=== PATIENT | female | born 1985 | race Caucasian/White ===

== ENCOUNTER 2022-07-08 18:28 | Emergency (ER) | payer OTHER, SELFPAY ==
[2022-07-08 18:29] VITALS: BP 131/86; PULSE 66; RESP 16; TEMP 36.7; O2SAT 99; BMI 40.3
--- NOTE | 2022-07-08 18:51 | CT_ITS ---
PROCEDURE INFORMATION: Exam: CT Head Without Contrast Exam date and time: 07/08/2022 7:18 PM Age: 37 years old Clinical indication: Injury or trauma; Other: Lac on head; Laceration TECHNIQUE: Imaging protocol: Computed tomography of the head without contrast. Radiation optimization: All CT scans at this facility use at least one of these dose optimization techniques: automated exposure control; mA and/or kV adjustment per patient size (includes targeted exams where dose is matched to clinical indication); or iterative reconstruction. COMPARISON: No relevant prior studies available. FINDINGS: Brain: No acute infarct or hemorrhage. No mass or midline shift. Normal moreira-white differentiation. Cerebral ventricles: No ventriculomegaly. Paranasal sinuses: Chronic right maxillary sinus disease. Mastoid air cells: Visualized mastoid air cells are well aerated. Bones/joints: Unremarkable. No acute fracture. Soft tissues: Thin laceration and scalp soft tissue swelling in the high left parietal region. IMPRESSION: 1. No acute intracranial abnormality. 2. High left parietal region scalp laceration and soft tissue swelling.
--- NOTE | 2022-07-08 18:51 | HMH.EDGENADL ---
Discharge Plan Disposition Chief Complaint: Wound/Laceration Referrals Follow up/Referrals: Provider,MD Evans [Primary Care Provider] - See instructions Instructions Patient Instructions: DI for Laceration Repair Discharge ED Provider: Jovani Conti General Adult HPI General Chief complaint: Wound/Laceration Stated complaint: AO07/08@1700 lac to head Time Seen by Provider: 07/08/22 18:48 History of Present Illness HPI narrative: Patient presents with a scalp injury sustained when she inadvertently struck her self in the head with a post whole digger. She denies additional injury she does note mild to moderate headache and describes symptoms as moderate and without exacerbating alleviating factors. Related Data Allergies Allergy/AdvReac Type Severity Reaction Status Date / Time No Known Allergies Allergy Verified 07/08/22 18:57 PFSH PFSH Social History Smoking Status: Never smoker ROS Obtained: Yes All systems reviewed & no additional complaints except as documented Physical Exam General General appearance: alert and in no apparent distress Head Head exam: other (There is a stellate, superficial appearing laceration to the left parietal aspect of the scalp.) Eye Eye exam: Present normal appearance, PERRL and EOMI ENT ENT exam: Present normal exam, normal oropharynx, mucous membranes moist, TM's normal bilaterally and normal external ear exam Neck Neck exam: Present normal inspection, full ROM, trachea midline and other (Nontender); Absent meningismus or lymphadenopathy Chest Chest inspection: Present normal inspection and symmetric chest wall rise; Absent tenderness Respiratory Respiratory exam: Present normal lung sounds bilaterally; Absent respiratory distress Cardiovascular Cardiovascular exam: Present regular rate and normal rhythm; Absent JVD Abdominal Exam Abdominal exam: Present soft and normal bowel sounds; Absent distention, tenderness or guarding Extremities Exam Extremities exam: Present normal inspection, full ROM and normal capillary refill; Absent calf tenderness Back Exam Back exam: Present normal inspection; Absent tenderness Neurological Exam Neurological exam: Present alert and oriented X3 Psychiatric Psychiatric exam: Present normal affect and normal mood Skin Skin exam: Present warm, dry, intact and normal color Lymphatic Lymphatic Findings: no adenopathy Medical Decision Making Medical Records Medical records reviewed: Yes I reviewed the patient's medical records. Kvng Inquiry Pt receiving controlled substance: No Vital Signs: 07/08/22 18:29 Temperature 98.1 F Temperature Source Oral Pulse Rate [Right Radial] 66 Respiratory Rate 16 Blood Pressure [Right Arm] 131/86 Blood Pressure Mean [Right Arm] 101 Blood Pressure Source [Right Arm] Automatic Cuff Blood Pressure Position [Right Arm] Sitting 02 Sat by Pulse Oximetry 99 Oxygen Delivery Method Room Air Lab Data Lab Results 07/08/22 18:53: Urine HCG, Qual Negative Orders (Tests/Meds): ED MEDICATIONS Generic Name Dose Route Start Last Admin Trade Name Freq PRN Reason Stop Dose Admin Lidocaine HCl 10 ml 07/08/22 19:36 Lidocaine 1% 10ml Mdv IJ 07/08/22 19:37 ONCE ONE ORDERS Category Date Time Status CT head/brain wo con Stat Cat Scan 07/08/22 18:51 Completed Urine , HCG Qual. Stat Lab 07/08/22 18:53 Completed Procedures Laceration Laceration 1: Site: scalp Size (cm): 4 Description: linear Depth: simple, single layer Local Anesthetic: lidocaine 1% Amount of anesthesia used (mL): 5 Pre-repair: wound explored Skin layer closed with: other (kellie quantity 5) Technique: simple, interrupted Critical Care Time Critical Care Time Critical Care Time: No Attestation: On , the high probability of a clinically significant, sudden or life threatening deterioratio
[2022-07-08 19:08] LABS: Urine Pregnancy, HCG Qual. Negative (Negative)
--- NOTE | 2022-07-08 19:11 | PC.NURSE ---
radiology aware of negative preg test
--- NOTE | 2022-07-08 19:17 | PC.NURSE ---
shift change report given to jaimern
--- NOTE | 2022-07-08 19:43 | PC.NURSE ---
at putting kellie in
[2022-07-08 19:56] VITALS: BP 145/92; PULSE 68; RESP 18; TEMP 36.6; O2SAT 99
== END 2022-07-08 20:04 | disposition home or self-care (01) ==
PROVIDERS: Emergency Provider Emergency Medicine
DX: S01.01XA Laceration without foreign body of scalp, initial encounter (principal); W22.8XXA Striking against or struck by other objects, initial encounter
CPT/HCPCS: 12002; 70450; 81025; 99284

== ENCOUNTER 2022-07-23 14:38 | Emergency (ER) | payer OTHER, SELFPAY ==
[2022-07-23 14:57] VITALS: BP 146/85; PULSE 91; RESP 19; TEMP 36.7; O2SAT 98; BMI 41.9
== END 2022-07-23 14:59 | disposition home or self-care (01) ==
LOC: UTC 14:40
PROVIDERS: Emergency Provider Nurse Practitioner Family
DX: Z48.02 Encounter for removal of sutures (principal)

== ENCOUNTER 2023-01-01 23:03 | Emergency (ER) | payer OTHER, SELFPAY ==
[2023-01-01 23:16] VITALS: BP 159/102; PULSE 98; RESP 13; TEMP 36.7; O2SAT 96; BMI 40.3
--- NOTE | 2023-01-01 23:22 | CT_ITS ---
PROCEDURE INFORMATION: Exam: CT Head Without Contrast Exam date and time: 01/02/2023 12:16 AM Age: 37 years old Clinical indication: Other: New onset of tremors; Additional info: New onset tremors TECHNIQUE: Imaging protocol: Computed tomography of the head without contrast. Radiation optimization: All CT scans at this facility use at least one of these dose optimization techniques: automated exposure control; mA and/or kV adjustment per patient size (includes targeted exams where dose is matched to clinical indication); or iterative reconstruction. REPORTING DATA: Count of CT and Cardiac NM exams in prior 12 months: This patient has received [address] and 0 known cardiac nuclear medicine studies in the 12 months prior to the current study. COMPARISON: CT HEAD/BRAIN WO CON 07/08/2022 7:18 PM FINDINGS: Brain: Normal. No hemorrhage. Unremarkable white matter. No mass effect. Cerebral ventricles: No ventriculomegaly. Pituitary gland and sella: Negative Paranasal sinuses: Visualized sinuses are unremarkable. No fluid levels. Mastoid air cells: Visualized mastoid air cells are well aerated. Orbital cavities: Negative. Parotid and submandibular glands: Negative Bones/joints: Unremarkable. No acute fracture. Soft tissues: Unremarkable. Vasculature: Negative. IMPRESSION: No acute intracranial abnormality.
--- NOTE | 2023-01-01 23:22 | ECG_ITS ---
APPROVED REPORT Exam: Resting ECG HR:90 bpm ECG Measurements Heart Rate 90 AXES CA 160 P 32 QRSd 107 QRS 37 QT 343 T 7 QTc 390 Conclusion SINUS RHYTHM WITH SINUS ARRHYTHMIA POSSIBLE INFERIOR MYOCARDIAL INFARCTION , PROBABLY OLD [30 ms Q WAVE IN II/aVF] BORDERLINE ECG UNCONFIRMED REPORT Electronically signed by : Joe Pedersen MD 01/02/2023 20:19:42
[2023-01-01 23:29] LABS: Basophils % 0.3 % (0.1-2.0); Eosinophils # 0.2 K/mm3 (0.0-0.4); Hematocrit 43.5 % (37.0-47.0); Hemoglobin 14.3 g/dL (12.2-16.2); Lymphocytes # 2.1 K/mm3 (0.7-4.5); Lymphocytes % 19.1 % (10-50); Mean Corpuscular HGB Conc 32.8 g/dL (31.8-35.4); Mean Corpuscular Hemoglobin 28.6 pg (27.0-31.2); Mean Corpuscular Volume 87.1 fl (81-99); Mean Platelet Volume 7.8 fl (7.4-10.4); Monocytes # 0.7 K/mm3 (0.1-1.0); Monocytes % 6.6 % (1.7-9.3); Neutrophils # 7.7 K/mm3 (1.8-7.8); Platelet Count 247 K/mm3 (142-424); Red Blood Count 4.99 M/mm3 (4.20-5.40); Red Cell Distribution Width 12.8 % (11.5-17.5); White Blood Count 10.8 K/mm3 (4.8-10.8)
[2023-01-01 23:30] VITALS: BP 140/82; PULSE 94; RESP 14; O2SAT 97
[2023-01-01 23:32] LABS: Chloride 103 mmol/L (98-107)
[2023-01-01 23:33] LABS: Potassium 4.1 mmoL/L (3.5-5.1); Sodium 139 mmol/L (136-145)
[2023-01-01 23:35] LABS: Alanine Aminotransferase 40 U/L (12-78); Albumin Level 4.4 g/dl (3.5-5.0); Albumin/Globulin Ratio 1.6 (1.1-1.8); Alkaline Phosphatase 89 U/L (38-126); Anion Gap 10.1 mEq/L (5-15); Aspartate Amino Transferase 39 U/L (14-36); Bilirubin,Total 0.3 mg/dl (0.2-1.3); Blood Urea Nitrogen 16 mg/dl (7-17); Carbon Dioxide 30 mmol/L (22.0-30.0); Creatinine Clearance Estimated 155 mL/min (50-200); Estimated Glomerular Filt Rate 71 ml/min (>60); GFR (African American) 86 ML/MIN (>60); Globulin 2.7 g/dL (1.3-3.2); Total Protein,Serum 7.1 g/dl (6.3-8.2)
[2023-01-01 23:36] LABS: Calcium 9.2 mg/dl (8.4-10.2); Glucose 90 mg/dl (74-100)
[2023-01-01 23:41] LABS: C-Reactive Protein 2.6 mg/L (0-4); Magnesium 1.7 mg/dl (1.6-2.3)
[2023-01-01 23:43] LABS: Creatine Kinase 87 U/L (30-135)
--- NOTE | 2023-01-01 23:48 | PC.NURSE ---
PATIENT ASSISTED TO RESTROOM
[2023-01-01 23:52] LABS: Troponin I < 0.01 ng/ml (0.00-0.034)
[2023-01-01 23:53] LABS: Creatine Kinase MB 0.4 ng/ml (0.0-2.03)
[2023-01-02] LABS: Microscopic, Urine URINE MICROSCOPIC (MICROSCOPIC)
[2023-01-02 00:01] VITALS: BP 110/73; PULSE 90; RESP 16; O2SAT 99
--- NOTE | 2023-01-02 00:08 | HMH.EDNEU ---
Discharge Plan Disposition Patient Disposition: Home, Self-Care Prescriptions Prescriptions: No Action No Known Home Medications Referrals Follow up/Referrals: Jessica Fenton MD [Primary Care Provider] - See instructions Clinical Impressions Clinical Impression: Spasm Stand Alone Forms Stand Alone Forms: Work/School Release Instructions Patient Instructions: DI for Muscle Spasm Discharge ED Provider: Anshu (ED)Thaddeus Neuro HPI General Chief Complaint: Neuro Symptoms/Deficit Stated Complaint: Tremors and Mouth does not want to open Time Seen by Provider: 01/02/23 00:08 Mode of Arrival: Family Vehicle Source of Information: Patient and Medical Record Limitations: No Limitations Description of Symptoms (Recalled from ER Triage Doc. by RN): 37 YO FEMALE PRESENTS WITH LEFT UPPER EXTREMITY TREMORS, DIFFICULTY WITH OPENING MOUTH. 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 STATES HER SYMPTOMS BEGAN WITH FULL TORSO TREMORS, BUE TREMORS AND HAVE NOW SINCE REDUCED TO HER LEFT ARM AND SOME IN HER RIGHT LEG. COMPLAINS HER TONGUE KEEPS TRYING TO CURL UP AND SHE CANNOT OPEN HER MOUTH INDEPENDENTLY , MAKING THE [employer]OUND. History of Present Illness HPI Narrative: pt with acute onset of bilat ext tremor plus face and torso and enciso - no ingestion of hemlock - no hives or rash Onset (ago): hour(s) Timing confirmed by: spouse History of same: No Severity: moderate Context: gradual onset On Anticoagulants: No Associated symptoms: denies other symptoms Treatments Prior to Arrival: none Related Data Home Medications Medication Instructions Recorded Confirmed No Known Home Medications 01/02/23 01/02/23 Allergies Allergy/AdvReac Type Severity Reaction Status Date / Time No Known Allergies Allergy Verified 07/08/22 18:57 Stroke Alert/NIH Score LOC Stroke Alert: No Level of Consciousness: Alert Facial/Visual Best Gaze: Normal Visual: No visual loss Facial Palsy: Normal Motor Motor Response, Left Arm: No drift/Amputation/Fused Motor Response, Right Arm: No drift/Amputation/Fused Motor Response, Left Leg: No drift/Amputation/Fused Motor Response, Right Leg: No drift/Amputation/Fused Sensory/Language Limb Ataxia: Absent Sensory: Normal Best Language: No aphasia Dysarthria: Normal speech, Intubated or Barrier present NIH Score Stroke Risk Score: 0 PFSH [facility] Disclaimer: The information contained in this section may have been updated after the patient was seen, as this information can be updated by other users. Social History Smoking Status: Unknown if ever smoked alcohol intake: never current occupational status: employed Travel in the last 8 weeks: None ROS Obtained: Yes All systems reviewed & no additional complaints except as documented Physical Exam General General appearance: alert Head Head exam: normocephalic Eye Eye exam: Present PERRL and EOMI ENT ENT exam: Present mucous membranes moist Neck Neck exam: Present trachea midline Respiratory Respiratory exam: Present normal lung sounds bilaterally and respiratory distress Cardiovascular Cardiovascular exam: Present regular rate; Absent systolic murmur Abdominal Exam Abdominal exam: Present soft Extremities Exam Extremities exam: Present full ROM Neurological Exam Neurological exam: Present alert, oriented X3, CN II-XII intact and other (gcs=15 and nonspecic trmor lt upper ext ); Absent motor sensory deficit Psychiatric Psychiatric exam: Present normal affect Skin Skin exam: Absent rash Medical Decision Making Medical Records Medical records reviewed: Yes I reviewed the patient's medical records. Kvng Inquiry Pt receiving controlled substance: No Vital Signs: 01/01/23 23:16 01/01/23 23:30 01/02/23 00:01 Temperature 98.1 F Temperature Source Oral Pulse Ra
[2023-01-02 00:09] LABS: Appearance,Urine CLEAR (Clear); Bilirubin,Urine Negative (Negative); Blood, Urine 3+ (Negative); Color,Urine YELLOW (Yellow); Glucose,Urine (UA) Negative (Negative); Ketones,Urine Negative (Negative); Leukocyte Esterase,Urine 1+ (Negative); Nitrate,Urine POSITIVE (Negative); Protein,Urine Negative (Negative); Specific Gravity, Urine 1.015 (1.005-1.030); Urobilinogen,Urine 0.2 EU/dl (0.2)
--- NOTE | 2023-01-02 00:09 | PC.NURSE ---
CONTACTED POISON CONTROL FOR INSTRUCTIONS. STATED TO GIVE COPIOUS AMOUNTS OF FLUIDS AND MONITOR NEURO AND CARDIAC STATUS AND TREAT SUPPORTIVELY.SPOKE WITH GRADY REYNA RN
[2023-01-02 00:12] LABS: Urine Pregnancy, HCG Qual. Negative (Negative)
[2023-01-02 00:15] LABS: Erythrocyte Sedimentation Rate 12 mm/hr (0-20)
[2023-01-02 00:21] LABS: RBC,Urine Occasional #/hpf (0-3); WBC,Urine Occasional #/hpf (0-3)
[2023-01-02 00:30] VITALS: BP 121/66; PULSE 84; RESP 18; O2SAT 97
[2023-01-02 00:40] LABS: Barbiturates Screen,Urine Negative ng/ml (<200)
[2023-01-02 00:41] LABS: Benzodiazepines Screen,Urine Negative ng/ml (<200)
[2023-01-02 00:42] LABS: Amphetamine/Metha Screen,Urine Negative ng/ml (<1000); Cannabinoid Screen,Urine Negative ng/ml (<50)
[2023-01-02 00:43] LABS: Cocaine Screen,Urine Negative ng/ml (<300); Methadone Screen,Urine Negative ng/ml (<300)
[2023-01-02 00:44] LABS: Opiate Screen,Urine Negative ng/ml (<300)
[2023-01-02 00:45] LABS: Phencyclidine Screen,Urine Negative ng/ml (<25)
[2023-01-02 01:01] VITALS: BP 112/70; PULSE 79; RESP 15; TEMP 36.7; O2SAT 98
--- NOTE | 2023-01-02 01:26 | PC.NURSE ---
Dr. Brasher at bedside
[2023-01-03 12:23] LABS: Myoglobin 25 ng/mL (25-58)
== END 2023-01-02 01:37 | disposition home or self-care (01) ==
PROVIDERS: Emergency Provider Emergency Medicine; PCP Family Medicine
DX: R25.1 Tremor, unspecified (principal); R25.2 Cramp and spasm
CPT/HCPCS: 70450; 80053; 80305; 81001; 81025; 82550; 82553; 83735; 83874; 84484; 85025; 85651; 86140; 87086; 93005; 96361; 96374; 96375; 99285

== ENCOUNTER 2023-10-18 16:19 | Emergency (ER) | payer OTHER, SELFPAY ==
[2023-10-18 17:10] VITALS: BP 123/83; PULSE 94; RESP 20; TEMP 37.4; O2SAT 99; BMI 40.3
[2023-10-18 17:21] LABS: UTC Influenza A Antigen Negative (Negative); UTC Influenza B Antigen Positive (Negative)
--- NOTE | 2023-10-18 17:22 | ED_ITS ---
Discharge Plan Disposition Patient Disposition: Home, Self-Care Condition: Good Prescriptions Prescriptions: New pqykreueheuahuc-doqlghund-BE [Bromfed DM] 2-30-10 mg/5 mL syrup 10 ml PO Q6H PRN (Reason: cold symptoms) Qty: 200 0RF Referrals Follow up/Referrals: Provider,Referral, [Primary Care Provider] - See instructions Activity Restrictions/Add. Instructions Additional Instructions/Restrictions: * Too late to start Tamiflu. Most effective when started within 48 hours of symptoms onset * Lots of rest * Increase Fluids water, Gatorade, powerade, pedialyte,if in macie/toddler/child * Alternate Tylenol and / or ibuprofen as discussed for fever, aches, chills Follow up IMMEDIATELY with your family doctor for new or worsening Symptoms OR no noticeable improvement over the next 48-72 hours, 911 for difficulty or breathing * You or your child area contagious until no fever, aches, chills for 24 hours with medication for symptoms * Help Prevent the spread of influenza: * ?Wash your hands often. Use soap and water. Wash your hands after you use the bathroom, change a child's diapers, or sneeze. Wash your hands before you prepare or eat food. Use gel hand cleanser that has 60% alcohol, when soap and water are not available. Do not touch your eyes, nose, or mouth unless you have washed your hands first. * Cover your mouth when you sneeze or cough. Cough into a tissue or the bend of your arm. If you use a tissue, throw it away immediately and wash your hands. * Clean shared items with a germ-killing hat cleaner. Clean table surfaces, doorknobs, and light switches. Do not share towels, silverware, and dishes with people who are sick. Wash bed sheets, towels, silverware, and dishes with soap and water. * Wear a mask over your mouth and nose if you are sick. The face mask may help protect others from becoming infected with the flu. Wear the mask when in common areas of your home or if you seek care with a healthcare provider. * Stay away from others if you are sick. Stay at home until 24 hours after your fever and symptoms are gone. Clinical Impressions Clinical Impression: Influenza Stand Alone Forms Stand Alone Forms: Work/School Release Instructions Patient Instructions: DI for Influenza -- Adult, Cough Discharge ED Provider[place] Cari [place] [facility] [place] General Stated complaint: runny nose,fever,headache Mode of Arrival: Ambulatory Source of Information: Patient Limitations: No Limitations Time Seen by Provider: 10/18/23 17:22 Description of Symptoms (Recalled from Triage Doc. by RN): PATIENT C/O CHEST CONGESTION, LUNG PAIN, AND DIFFICULTY BREATHING SINCE MONDAY HEENT Symptoms (Recalled from RN notes): No Resp Symptoms (Recalled from RN notes): Yes Skin Symptoms (Recalled from RN notes): No MS Symptoms (Recalled from RN notes): No Functional Status (Recalled from RN notes): WNL History of Present Illness Provider Complaint: Patient states that she has sick since the weekend and has been taking dayquil to help with her fever, chills and body aches, States that she has been having a dry cough and feels like it is trying to move into her chest, states it murdock and hurts in her lungs at times when she takes a deep breath and makes her cough Related Data Previous Rx's Medication Instructions Recorded scvwrnjifyvdwmq-dzgjumhnaekrekw-LA 10 ml PO Q6H PRN cold symptoms 10/18/23 2 mg-30 mg-10 mg/5 mL oral syrup #200 mL (Bromfed DM) Allergies Allergy/AdvReac Type Severity Reaction Status Date / Time No Known Allergies Allergy Verified 07/08/22 18:57 Worker's Comp Is this a Worker's Comp case?: No [facility] Disclaimer: The information contained in this section may have been updated after the patient was seen, as this information can be updated by other users. Social History (Updated 01/02/23 @ 01:28 by Thaddeus Brasher (ED)MD) Smoking Status: Unknown if ever smoked alcohol intake: never current occupational status: employed Travel in the last 8 weeks: None ROS Obtained: Yes All systems reviewed & no additional complaints except as documented and Yes Systems reviewed as appropriate & no additional complaints except as documented Constitutional Constitutional: Reports system reviewed and no additional complaints, except as documented, Reports as per HPI, Reports body ache, Reports chills, Reports f ever(s) and Reports headache(s) ENT Ears, Nose, Mouth, and Throat: Reports system reviewed and no additional complaints, except as documented, Reports as per HPI, Reports headache(s) and Reports nasal congestion Cardiovascular Cardiovascular: Reports system reviewed and no additional complaints, except as documented and Reports as per HPI Respiratory Respiratory: Reports system reviewed and no additional complaints, except as documented, Reports as per HPI, Reports shortness of breath (at times after coughing), Reports chest congestion, Reports cough and Reports pain with cough Gastrointestinal Gastrointestingal: Reports system reviewed and no additional complaints, except as documented and as per HPI Neurologic Neurologic: Reports headache(s) Physical Exam General General appearance: alert and in no apparent distress ENT ENT exam: Present mucous membranes moist Expanded ENT Exam Nose exam: Absent sinus tenderness Respiratory Respiratory exam: Present normal lung sounds bilaterally; Absent respiratory distress or wheezes Cardiovascular Cardiovascular exam: Present regular rate, normal rhythm and normal heart sounds Neurological Exam Neurological exam: Present alert, oriented X3 and normal gait Medical Decision Making Kvng Inquiry Pt receiving controlled substance: No Kvng was queried for this patient: No Vital Signs: 10/18/23 17:10 Temperature 99.3 F Temperature Source Oral Pulse Rate [Left Brachial] 94 H Respiratory Rate 20 Blood Pressure [Left Arm] 123/83 Blood Pressure Mean [Left Arm] 96 Blood Pressure Source [Left Arm] Automatic Cuff Blood Pressure Position [Left Arm] Sitting 02 Sat by Pulse Oximetry 99 Oxygen Delivery Method Room Air Lab Data Lab results reviewed: Yes I reviewed the patient's lab results. Lab Results 10/18/23 17:21: Influenza Type A Ag Negative, Influenza Type B Ag Positive A Medical Decision Narrative: Patient denies states just had period a couple weeks ago
[2023-10-18 17:36] VITALS: BP 123/83; PULSE 94; RESP 20; TEMP 37.4; O2SAT 99
== END 2023-10-18 17:39 | disposition home or self-care (01) ==
PROVIDERS: Emergency Provider Nurse Practitioner
DX: J10.1 Influenza due to other identified influenza virus with other respiratory manifestations; R51.9 Headache, unspecified; R50.9 Fever, unspecified; R05.9 Cough, unspecified; R07.1 Chest pain on breathing
CPT/HCPCS: 87804; 99212; 99214; G0463

== ENCOUNTER 2024-01-28 08:47 | Emergency (ER) | payer OTHER, SELFPAY ==
[2024-01-28 08:49] VITALS: BP 143/95; PULSE 117; RESP 16; TEMP 37.9; O2SAT 97; BMI 40.3
--- NOTE | 2024-01-28 08:58 | XR_ITS ---
PROCEDURE INFORMATION: Exam: XR Chest Exam date and time: 01/28/2024 10:12 AM Age: 38 years old Clinical indication: Cough and other: Chest pain; Additional info: Cough, R sided wheeze TECHNIQUE: Imaging protocol: Radiologic exam of the chest. Views: 2 views. COMPARISON: No relevant prior studies available. FINDINGS: Lungs: There is an indistinct heterogeneous ground-glass infiltrate present peripherally right lower lung zone. Findings are nonspecific and may be secondary to pneumonia with pulmonary infarct to be excluded. Remaining lung hurtado are clear. Pleural spaces: Unremarkable. No pleural effusion. No pneumothorax. Heart/Mediastinum: Unremarkable. No cardiomegaly. Bones/joints: Unremarkable for age. IMPRESSION: Nonspecific peripheral infiltrate right lower lung zone that may be secondary to pneumonia with pulmonary infarct to be excluded. Consider follow-up CTA chest for further assessment.
--- NOTE | 2024-01-28 09:01 | HMH.EDGENADL ---
Discharge Plan Disposition Patient Disposition: Home, Self-Care Prescriptions Prescriptions: New doxycycline hyclate 100 mg capsule 100 mg PO BID 7 Days Qty: 14 0RF prednisone 50 mg tablet 50 mg PO DAILY 4 Days Qty: 4 0RF albuterol sulfate 90 mcg/actuation HFA aerosol inhaler 3 inh inhalation Q3H PRN (Reason: shortness of breath or wheezing) Qty: 6.7 0RF No Action kofnkcnulmqmmcq-rjhgvbfnp-HF [Bromfed DM] 2-30-10 mg/5 mL syrup 10 ml PO Q6H PRN (Reason: cold symptoms) Qty: 200 0RF Referrals Follow up/Referrals: Provider,Referral, MD [Primary Care Provider] - See instructions Activity Restrictions/Add. Instructions Additional Instructions/Restrictions: At this time it was felt you are safe to be discharged home. If new or worsening symptoms please do not hesitate to return the emergency department. Please take antibiotics as prescribed and follow-up with your family doctor within 5 days if symptoms or not resolving. Clinical Impressions Clinical Impression: Pneumonia Discharge ED Provider: Malachi Joseph General Adult HPI General Chief complaint: Upper Respiratory Infection Stated complaint: fever, soa, wheezing, nauseaus, dizzy Time Seen by Provider: 01/28/24 08:52 Mode of Arrival: Ambulatory Source of Information: Patient Limitations: No Limitations Description of Symptoms (Recalled from ER Triage Doc. by RN): Patient reports wheezing, fever and body aches since yesterday. History of Present Illness HPI narrative: Patient is a 38-year-old female with no pertinent past medical history who presents emergency department for evaluation of cough. Onset was acute, over the last 24 hours, there is associated wet cough that she describes as crackly, diffuse bodyaches. Last menstrual period this week. Due to persistent symptoms she presents here for continued evaluation. No other acute complaints at this time. No chest pain. Related Data Previous Rx's Medication Instructions Recorded huvatlmtklagies-kfkbiubborkvnlb-RK 10 ml PO Q6H PRN cold symptoms 10/18/23 2 mg-30 mg-10 mg/5 mL oral syrup #200 mL (Bromfed DM) albuterol sulfate 90 mcg/actuation 3 inh inhalation Q3H PRN shortness 01/28/24 aerosol inhaler of breath or wheezing #6.7 grams doxycycline hyclate 100 mg capsule 100 mg PO BID pneumonia 7 days #14 01/28/24 caps prednisone 50 mg tablet 50 mg PO DAILY 4 days #4 tabs 01/28/24 Allergies Allergy/AdvReac Type Severity Reaction Status Date / Time No Known Allergies Allergy Verified 07/08/22 18:57 [facility] Disclaimer: The information contained in this section may have been updated after the patient was seen, as this information can be updated by other users. Social History (Updated 01/02/23 @ 01:28 by Thaddeus BIRD)MD) Smoking Status: Never smoker alcohol intake: never current occupational status: employed Travel in the last 8 weeks: None ROS Obtained: Yes Systems reviewed as appropriate & no additional complaints except as documented Physical Exam General General appearance: alert and in no apparent distress Head Head exam: atraumatic and normocephalic Eye Eye exam: Present PERRL and EOMI ENT ENT exam: Present mucous membranes moist Neck Neck exam: Present normal inspection Chest Chest inspection: Present normal inspection and symmetric chest wall rise Respiratory Respiratory exam: Present wheezes (Right greater than left); Absent respiratory distress Cardiovascular Cardiovascular exam: Present normal rhythm and tachycardia Abdominal Exam Abdominal exam: Present soft; Absent tenderness Extremities Exam Extremities exam: Present normal inspection Neurological Exam Neurological exam: Present alert Psychiatric Psychiatric exam: Present normal affect Skin Skin exam: Present warm and dry Medical Decision Making Kvng Inquiry Pt receiving controlled substance: No Vital Signs: 01/28/24 08:49 01/28/24 09:30 01/28/24 10:00 Temperature 100.3 F H Temperature Source Oral Pulse Rate 103 H 132 H Pulse Rate [Radial] 117 H Respiratory Rate 16 20 Blood Pressure 145/83 H 133/77 Blood Pressure [Right Arm] 143/95 H Blood Pressure Mean [Right Arm] 111 Blood Pressure Source [Right Arm] Automatic Cuff Blood Pressure Position [Right Arm] Sitting 02 Sat by Pulse Oximetry 97 100 98 Oxygen Delivery Method Room Air 01/28/24 10:30 Temperature Temperature Source Pulse Rate 134 H Pulse Rate [Radial] Respiratory Rate 19 Blood Pressure 148/86 H Blood Pressure [Right Arm] Blood Pressure Mean [Right Arm] Blood Pressure Source [Right Arm] Blood Pressure Position [Right Arm] 02 Sat by Pulse Oximetry 97 Oxygen Delivery Method Lab Data Lab Results 01/28/24 09:09: WBC 9.1, RBC 4.69, Hgb 14.1, Hct 40.7, MCV 86.8, MCH 30.1, MCHC 34.7, RDW 13.1, Plt Count 231, MPV 8.0, Neut % (Auto) 86.2 H, Lymph % (Auto) 8.2 L, [place] % (Auto) 4.8, Eos % (Auto) 0.1, Baso % (Auto) 0.7, Neut # (Auto) 7.8, Lymph # (Auto) 0.7, [place] # (Auto) 0.4, Eos # (Auto) 0.0, Baso # (Auto) 0.1, Total Counted 100, Neutrophils % (Manual) 87 H, Lymphocytes % (Manual) 8 L, Monocytes % (Manual) 5, Platelet Estimate Normal, RBC Morphology Normal, Sodium 136, Potassium 3.5, Chloride 103, Carbon Dioxide 25, Anion Gap 11.5, BUN 10, Creatinine 0.80, Estimated Creat Clear 172, Estimated GFR 81, Est GFR ( Amer) 98, Glucose 121 H, Lactate 1.0, Calcium 9.2, Total Bilirubin 0.6, AST 35, ALT 29, Alkaline Phosphatase 82, Total Protein 7.5, Albumin 4.2, Globulin 3.3 H, Albumin/Globulin Ratio 1.3, Serum HCG, Qual Negative, SARS-CoV-2 (PCR) Not detected, Influenza A Untype (PCR) Not detected, Influenza Type B (PCR) Not detected 01/28/24 09:09 01/28/24 09:09 Orders (Tests/Meds): ED MEDICATIONS Discontinued Medications Generic Name Dose Route Start Last Admin Trade Name Freq PRN Reason Stop Dose Admin Acetaminophen 1,000 mg 01/28/24 08:58 01/28/24 09:15 Acetaminophen 1,000mg/100ml Vial IV 01/28/24 08:59 Not Given ONCE ONE Albuterol/Ipratropium 6 ml 01/28/24 08:58 01/28/24 09:15 Ipratropium/Albuterol 3 Ml Neb IH 01/28/24 08:59 6 ml ONCE ONE Administration Lactated Ringer's 1,000 mls @ 999 mls/hr 01/28/24 08:58 01/28/24 09:15 Lactated Ringer's 1000 Ml Bag IV 01/28/24 09:58 999 mls/hr .Q1H1M ONE Administration Methylprednisolone Sodium Succinate 125 mg 01/28/24 08:58 01/28/24 09:15 Methylprednisolone Sod Succ 125mg Vial IV 01/28/24 08:59 125 mg ONCE ONE Administration ORDERS Category Date Time Status CXR 2 view (NOT portable) [XR chest 2V] Stat Exams 01/28/24 08:58 Taken CBC w/Auto Diff [Complete Blood Count Auto Diff] Stat Lab 01/28/24 09:09 Completed CMP [Comprehensive Metabolic Panel] Stat Lab 01/28/24 09:09 Completed HCG Qualitative, Serum Stat Lab 01/28/24 09:09 Completed Lactic Acid Stat Lab 01/28/24 09:09 Completed Rapid PCR Covid and Flu A/B Stat Lab 01/28/24 09:09 Completed Blood Culture Stat Micro 01/28/24 09:09 Received EKG Request [ECG Request] Stat Y 01/28/24 08:58 Ordered ECG Data Tracing #1: Independently interpreted by me, rate is 112, rhythm is regular, axis is normal, no ST elevation in anatomical contiguous leads, QTc 374. Medical Decision Narrative: In summary patient is a 38-year-old female past medical history described above who presents emergency department for evaluation of cough, fever. Patient is hemodynamically stable nontoxic-appearing upon arrival, temperature 100.3 ?F, tachycardic heart rate 117. Patient has asymmetric wheezing right greater than left. She also has hoarse voice consistent clinically with laryngitis. Differential includes pneumonia, viral respiratory infection, among others. Workup be conducted with hematologic labs, two-view chest x-ray, EKG. Initial interventions include crystalloid bolus, DuoNeb x 2, methylprednisolone. I do not have any concern for deep space neck infection given that she has full range of motion, no asymmetric neck swelling therefore imaging from that standpoint will be deferred. No concern for pulmonary embolism at this time as patient has no asymmetric lower extremity swelling and symptoms are much more readily explained by respiratory tract infection. X-ray informally interpreted by me, right sided pneumonia. Upon repeat evaluation patient was in no respiratory distress significant improvement in wheezing, has worsening tachycardia however this is mediated by her breathing treatments. Patient is overall well-appearing and well-perfused therefore sepsis bolus fluids will be deferred and patient is appropriate for outpatient management at this time. Patient will be discharged with a course of doxycycline for 7 days per ISDA guidelines and was given return precautions and verbalized understanding. Critical Care Critical Care Time Critical Care Time: No
[2024-01-28] MEDS: METHYLPREDNISOLONE SOD SUCC 125MG VIAL 125 MG IV (09:15)
[2024-01-28] MEDS: LACTATED RINGERS 1000ML 1,000 ML 999 ML IV (09:15)
[2024-01-28] MEDS: IPRATROPIUM/ALBUTEROL 3 ML NEB 6 ML IH (09:15)
[2024-01-28 09:19] LABS: Coronavirus 19, PCR Not Detected (NotDetected); Influenza A, PCR Not Detected (NotDetected); Influenza B, PCR Not Detected (NotDetected)
[2024-01-28 09:22] LABS: Basophils # 0.1 K/mm3 (0-0.2); Basophils % 0.7 % (0.1-2.0); Eosinophils % 0.1 % (0.1-12.0); Hematocrit 40.7 % (37.0-47.0); Hemoglobin 14.1 g/dL (12.2-16.2); Lymphocytes # 0.7 K/mm3 (0.7-4.5); Lymphocytes % 8.2 % (10-50); Mean Corpuscular HGB Conc 34.7 g/dL (31.8-35.4); Mean Corpuscular Hemoglobin 30.1 pg (27.0-31.2); Mean Corpuscular Volume 86.8 fl (81-99); Monocytes # 0.4 K/mm3 (0.1-1.0); Monocytes % 4.8 % (1.7-9.3); Neutrophils # 7.8 K/mm3 (1.8-7.8); Neutrophils % 86.2 % (37.0-80.0); Platelet Count 231 K/mm3 (142-424); Red Blood Count 4.69 M/mm3 (4.20-5.40); Red Cell Distribution Width 13.1 % (11.5-17.5); White Blood Count 9.1 K/mm3 (4.8-10.8)
[2024-01-28 09:25] LABS: MANUAL DIFFERENTIAL MANUAL DIFFERENTIAL (MANUAL DIFF)
[2024-01-28 09:27] LABS: Chloride 103 mmol/L (98-107); Potassium 3.5 mmoL/L (3.5-5.1); Sodium 136 mmol/L (136-145)
[2024-01-28 09:29] LABS: Blood Urea Nitrogen 10 mg/dl (7-17); Creatinine Clearance Estimated 172 mL/min (50-200); Estimated Glomerular Filt Rate 81 ml/min (>60); GFR (African American) 98 ML/MIN (>60)
[2024-01-28 09:30] VITALS: BP 145/83; PULSE 103; O2SAT 100
[2024-01-28 09:30] LABS: Alanine Aminotransferase 29 U/L (12-78); Albumin Level 4.2 g/dl (3.5-5.0); Albumin/Globulin Ratio 1.3 (1.1-1.8); Alkaline Phosphatase 82 U/L (38-126); Anion Gap 11.5 mEq/L (5-15); Aspartate Amino Transferase 35 U/L (14-36); Bilirubin,Total 0.6 mg/dl (0.2-1.3); Calcium 9.2 mg/dl (8.4-10.2); Carbon Dioxide 25 mmol/L (22.0-30.0); Globulin 3.3 g/dL (1.3-3.2); Glucose 121 mg/dl (74-100); Total Protein,Serum 7.5 g/dl (6.3-8.2)
--- NOTE | 2024-01-28 09:35 | ECG_ITS ---
APPROVED REPORT Exam: Resting ECG HR:112 bpm ECG Measurements Heart Rate 112 AXES VA 112 P 8 QRSd 110 QRS 12 QT 308 T -2 QTc 374 Conclusion SINUS TACHYCARDIA WITH SHORT VA INTERVAL INCOMPLETE RIGHT BUNDLE BRANCH BLOCK [90+ ms QRS DURATION, TERMINAL R IN V1/V2, 40+ ms S IN I/aVL/V4/V5/V6] Electronically signed by : PARRISH GLYNN, 01/28/2024 12:14:29
[2024-01-28 09:38] LABS: Lymphocytes % 8 % (10-50); Monocytes % 5 % (2-9); Neutrophils % 87 % (42-76); Total Cells Counted 100
[2024-01-28 09:39] LABS: Platelet Estimate Normal; RBC Morphology Normal
[2024-01-28 10:00] VITALS: BP 133/77; PULSE 132; RESP 20; O2SAT 98
[2024-01-28 10:17] LABS: HCG Qualitative, Serum Negative (Negative)
--- NOTE | 2024-01-28 10:24 | PC.NURSE ---
PT returned to room from RAD
--- NOTE | 2024-01-28 10:26 | PC.NURSE ---
pt back from xray
[2024-01-28 10:30] VITALS: BP 148/86; PULSE 134; RESP 19; O2SAT 97
--- NOTE | 2024-01-28 10:32 | PC.NURSE ---
Dr. Joseph at bedside
[2024-01-28 11:01] VITALS: BP 148/86; PULSE 110; RESP 19; TEMP 38.8; O2SAT 97
== END 2024-01-28 11:02 | disposition home or self-care (01) ==
PROVIDERS: Emergency Provider Emergency Medicine
DX: J18.9 Pneumonia, unspecified organism (principal); R06.2 Wheezing; R00.0 Tachycardia, unspecified; R50.9 Fever, unspecified; R05.1 Acute cough
CPT/HCPCS: 71046; 80053; 83605; 84703; 85007; 85025; 87040; 87636; 93005; 96361; 96374; 96375; 99285; J2930; J7120; J7620

== ENCOUNTER 2025-03-09 22:42 | Emergency (ER) | payer OTHER, SELFPAY ==
[2025-03-09 22:43] VITALS: BP 179/95; PULSE 62; RESP 25; TEMP 36.9; O2SAT 100; BMI 40.3
[2025-03-09 23:01] VITALS: BP 132/78; PULSE 68; RESP 11; O2SAT 99
--- NOTE | 2025-03-09 23:01 | HMH.EDGENADL ---
Discharge Plan Disposition Patient Disposition: Home, Self-Care Prescriptions Prescriptions: No Action doxycycline hyclate 100 mg capsule 100 mg PO BID 7 Days Qty: 14 0RF prednisone 50 mg tablet 50 mg PO DAILY 4 Days Qty: 4 0RF albuterol sulfate 90 mcg/actuation HFA aerosol inhaler 3 inh inhalation Q3H PRN (Reason: shortness of breath or wheezing) Qty: 6.7 0RF mhynznqjrjuwqyc-utqrekyrb-DH [Bromfed DM] 2-30-10 mg/5 mL syrup 10 ml PO Q6H PRN (Reason: cold symptoms) Qty: 200 0RF Activity Restrictions/Add. Instructions Additional Instructions/Restrictions: Please follow-up with your primary care provider. Please return to the emergency department if you develop any new or worsening symptoms or become concerned for your health. Clinical Impressions Clinical Impression: Chest pain Qualifiers: Chest pain type: unspecified Qualified Code(s): R07.9 - Chest pain, unspecified Print Language Print Language: Slovenian Discharge ED Provider: Gabriel Cagle Adult [facility] General Chief complaint: Chest Pain Stated complaint: Chest Pain Time Seen by Provider: 03/09/25 22:57 Mode of Arrival: Ambulatory Source of Information: Patient Description of Symptoms (Recalled from ER Triage Doc. by RN): pt report chest pain that began at 2200. pt reports it is tight feeling in the center of the chest. pt reports the pain radiates of the left arm and shakiness. History of Present Illness HPI narrative: 39-year-old female without significant past medical history presents for chest pain. She reports this started about 10:00. She reports feeling tightness in her chest and some pain in her left arm. She reports it feels a little better now but is still hurting. She did not take anything prior to arrival. Denies any shortness of breath. Related Data Previous Rx's ?Medication ?Instructions ?Recorded hrvkirgicmtxwom-akmujgdzuwcffzw-BC 10 ml PO Q6H PRN cold symptoms 10/18/23 2 mg-30 mg-10 mg/5 mL oral syrup #200 mL (Bromfed DM) albuterol sulfate 90 mcg/actuation 3 inh inhalation Q3H PRN shortness 01/28/24 aerosol inhaler of breath or wheezing #6.7 grams doxycycline hyclate 100 mg capsule 100 mg PO BID pneumonia 7 days #14 01/28/24 caps prednisone 50 mg tablet 50 mg PO DAILY 4 days #4 tabs 01/28/24 Allergies Allergy/AdvReac Type Severity Reaction Status Date / Time No Known Allergies Allergy Verified 07/08/22 18:57 [facility] Disclaimer: The information contained in this section may have been updated after the patient was seen, as this information can be updated by other users. Social History (Updated 01/02/23 @ 01:28 by Thaddeus Brasher (RAMÓN)MD) Smoking Status: Never smoker alcohol intake: never current occupational status: employed Travel in the last 8 weeks?: None ROS Obtained: Yes All systems reviewed & no additional complaints except as documented Physical Exam General General appearance: alert and in no apparent distress Head Head exam: atraumatic and normocephalic Eye Eye exam: Present normal appearance, PERRL and EOMI ENT ENT exam: Present normal oropharynx and normal external ear exam Neck Neck exam: Present normal inspection and full ROM Chest Chest inspection: Present normal inspection and symmetric chest wall rise; Absent tenderness Respiratory Respiratory exam: Present normal lung sounds bilaterally; Absent respiratory distress Cardiovascular Cardiovascular exam: Present regular rate and normal rhythm Abdominal Exam Abdominal exam: Present soft; Absent distention, tenderness or guarding Extremities Exam Extremities exam: Present normal inspection; Absent edema or joint swelling Back Exam Back exam: Present normal inspection; Absent tenderness Neurological Exam Neurological exam: Present alert and oriented X3; Absent motor sensory deficit Psychiatric Psychiatric exam: Present normal affect and normal mood Skin Skin exam: Present warm, dry and normal color Lymphatic Lymphatic Findings: no adenopathy Medical Decision Making Medical Records Medical records reviewed: Yes I reviewed the patient's medical records. Screening: Per USPSTF and CDC recommendations, given the prevalence of disease in our region, it is our hospital?s policy to screen for HIV and viral Hepatitis for all patients aged 18 and over and those with ongoing risk factors. Kvng Inquiry Pt receiving controlled substance: No Kvng was queried for this patient: No Vital Signs: 03/09/25 22:43 03/09/25 23:01 03/09/25 23:30 Temperature 98.4 F Temperature Source Oral Pulse Rate 68 57 L Pulse Rate [Right] 62 Respiratory Rate 25 H 11 L 11 L Blood Pressure 132/78 135/82 Blood Pressure [Right Arm] 179/95 H Blood Pressure Mean [Right Arm] 123 Blood Pressure Position 02 Sat by Pulse Oximetry 100 99 96 Oxygen Delivery Method 03/10/25 00:01 03/10/25 00:30 03/10/25 01:00 Temperature Temperature Source Pulse Rate 57 L 58 L 58 L Pulse Rate [Right] Respiratory Rate 12 12 12 Blood Pressure 126/76 110/65 110/52 L Blood Pressure [Right Arm] Blood Pressure Mean [Right Arm] Blood Pressure Position 02 Sat by Pulse Oximetry 96 96 95 Oxygen Delivery Method 03/10/25 01:30 03/10/25 02:00 03/10/25 02:40 Temperature Temperature Source Pulse Rate 54 L 52 L 53 L Pulse Rate [Right] Respiratory Rate 12 14 12 Blood Pressure 101/56 L 114/73 128/76 Blood Pressure [Right Arm] Blood Pressure Mean [Right Arm] Blood Pressure Position 02 Sat by Pulse Oximetry 97 97 99 Oxygen Delivery Method 03/10/25 02:45 03/10/25 02:53 Temperature 97.6 F 97.6 F Temperature Source Oral Pulse Rate 55 L 55 L Pulse Rate [Right] Respiratory Rate 12 12 Blood Pressure 130/78 130/78 Blood Pressure [Right Arm] Blood Pressure Mean [Right Arm] Blood Pressure Position Supine 02 Sat by Pulse Oximetry 98 Oxygen Delivery Method Room Air Lab Data Lab results reviewed: Yes I reviewed the patient's lab results. Lab Results 03/09/25 22:45: WBC 8.0, RBC 4.77, Hgb 13.9, Hct 41.4, MCV 86.8, MCH 29.1, MCHC 33.6, RDW 11.7, Plt Count 283, MPV 10.4, Neut % (Auto) 43.1, Lymph % (Auto) 44.9, [place] % (Auto) 8.9, Eos % (Auto) 2.5, Baso % (Auto) 0.4, Neut # (Auto) 3.5, Lymph # (Auto) 3.6, [place] # (Auto) 0.7, Eos # (Auto) 0.2, Baso # (Auto) 0.0, D-Dimer 0.53 H, Sodium 142, Potassium 3.5, Chloride 105, Carbon Dioxide 28, Anion Gap 12.5, BUN 15, Creatinine 1.10 H, Estimated Creat Clear 124, Estimated GFR 56 L, Est GFR ( Amer) 67, Glucose 109 H, Calcium 10.0, Total Bilirubin 0.3, AST 37 H, ALT 27, Alkaline Phosphatase 107, Troponin I < 0.01, Total Protein 7.6, Albumin 4.8, Globulin 2.8, Albumin/Globulin Ratio 1.7 03/10/25 02:08: Troponin I < 0.01 03/09/25 22:45 03/09/25 22:45 Orders (Tests/Meds): ED MEDICATIONS Discontinued Medications Generic Name Dose Route Start Last Admin Trade Name Tanya PRN Reason Stop Dose Admin Acetaminophen 1,000 mg 03/09/25 23:05 03/09/25 23:19 Acetaminophen 500mg Tab PO 03/09/25 23:06 1,000 mg ONCE ONE Administration Aspirin 324 mg 03/09/25 23:05 03/09/25 23:19 Aspirin 81mg Chewable Tablet PO 03/09/25 23:06 324 mg ONCE ONE Administration Belladonna Alkaloids 60 ml 03/09/25 23:05 03/09/25 23:19 Belladonna Alkaloids 60 Ml Ml PO 03/09/25 23:06 60 ml ONCE ONE Administration Prochlorperazine Edisylate 10 mg 03/10/25 00:00 03/10/25 00:09 Prochlorperazine 10mg/2ml Vial IV 03/10/25 00:01 10 mg ONCE ONE Administration ORDERS Category Date Time Status CXR --portable [XR chest portable] Stat Exams 03/09/25 23:05 Completed CBC w/Auto Diff [Complete Blood Count Auto Diff] Stat Lab 03/09/25 22:45 Completed CMP [Comprehensive Metabolic Panel] Stat Lab 03/09/25 22:45 Completed D-Dimer Stat Lab 03/09/25 22:45 Completed Troponin I Q3H Lab 03/09/25 22:45 Completed Troponin I Q3H Lab 03/10/25 02:08 Completed ECG Data Tracing #1: I reviewed this ECG and interpreted as documented below: Sinus tachycardia, rate of 104, insignificant Q waves in inferior lead III, no significant ST elevation. Wandering baseline somewhat limits interpretation. ECG initial impression date: 03/09/25 ECG initial impression time: 22:42 HEART Score History (anamnesis): Moderately suspicious ECG: Normal Age: <45 years Risk factors: No known risk factors Troponin: </= normal limit HEART Score: 1 Medical Decision Narrative: 39-year-old female without significant past medical history presents for chest pain starting about an hour prior to arrival.. History was obtained via interactive discussion with patient. On arrival, patient is [afebrile, hemodynamically stable, satting appropriately, alert, oriented x4, GCS 15], moving all extremities spontaneously. Full physical exam performed and significant for no significant physical exam abnormalities. Differential includes but is not limited to ACS, PE, musculoskeletal chest pain, GERD, esophageal spasm. Patient was given aspirin GI cocktail Tylenol for symptomatic management and correction of underlying abnormalities. Workup initiated including CBC CMP D-dimer (cannot PERC out secondary to tachycardia) EKG troponin chest x-ray. On re-evaluation, patient [remains afebrile, HD stable.] Laboratory workup independently interpreted by me and significant for negative initial troponin, negative D-dimer by years criteria, mildly elevated creatinine compared to baseline. Imaging independently interpreted by me and significant for clear lungs bilaterally without focal opacity. See radiology read for full review of final results. Patient was placed in ED observation status for serial cardiac enzymes and continuous cardiac monitoring. On reassessment patient reports marked symptomatic improvement/resolution. Repeat cardiac enzyme returned undetectably low. Given this, patient was seen department discharge with outpatient management does not need admitted at this time. Interact discussion with outpatient regarding her presentation and discharge. Return precautions given. Less than 30 minutes were utilized in preparing discharge. Procedures Risk/Benefits of Procedure(s) Were Explained: Yes Critical Care Critical Care Time Critical Care Time: No
--- NOTE | 2025-03-09 23:05 | XR_ITS ---
PROCEDURE INFORMATION: Exam: XR Chest Exam date and time: 03/09/2025 11:14 PM Age: 39 years old Clinical indication: Sternal or substernal pain; Additional info: Cp TECHNIQUE: Imaging protocol: Radiologic exam of the chest. Views: 1 view. COMPARISON: CR XR CHEST 2V 01/28/2024 10:12 AM FINDINGS: Lungs: Unremarkable. No consolidation. Pleural spaces: Unremarkable. No pleural effusion. No pneumothorax. Heart/Mediastinum: Unremarkable. No cardiomegaly. Bones/joints: Unremarkable. IMPRESSION: No acute findings.
[2025-03-09 23:18] LABS: Alanine Aminotransferase 27 U/L (12-78); Albumin Level 4.8 g/dl (3.5-5.0); Albumin/Globulin Ratio 1.7 (1.1-1.8); Alkaline Phosphatase 107 U/L (38-126); Anion Gap 12.5 mEq/L (5-15); Aspartate Amino Transferase 37 U/L (14-36); Bilirubin,Total 0.3 mg/dl (0.2-1.3); Blood Urea Nitrogen 15 mg/dl (7-17); Calcium 10.0 mg/dl (8.4-10.2); Carbon Dioxide 28 mmol/L (22.0-30.0); Chloride 105 mmol/L (98-107); Creatinine Clearance Estimated 124 mL/min (50-200); Creatinine,Serum 1.10 mg/dl (0.52-1.04); Estimated Glomerular Filt Rate 56 ml/min (>60); GFR (African American) 67 ML/MIN (>60); Globulin 2.8 g/dL (1.3-3.2); Glucose 109 mg/dl (74-100); Potassium 3.5 mmoL/L (3.5-5.1); Sodium 142 mmol/L (136-145); Total Protein,Serum 7.6 g/dl (6.3-8.2)
[2025-03-09 23:19] LABS: Hematocrit 41.4 % (37.0-47.0); Hemoglobin 13.9 g/dL (12.2-16.2); Immature Granulocytes % 0.2 %; Mean Corpuscular HGB Conc 33.6 g/dL (31.8-35.4); Mean Corpuscular Hemoglobin 29.1 pg (27.0-31.2); Mean Corpuscular Volume 86.8 fl (81-99); Nucleated Red Blood Cells % 0 %; Platelet Count 283 K/mm3 (142-424); Red Blood Count 4.77 M/mm3 (4.20-5.40); Red Cell Distribution Width-SD 37.2 fL; White Blood Count 8.0 K/mm3 (4.8-10.8)
[2025-03-09] MEDS: BELLADONNA ALKALOIDS 60 ML ML PO (23:19)
[2025-03-09] MEDS: ACETAMINOPHEN 500MG TAB 1000 MG PO (23:19)
[2025-03-09] MEDS: ASPIRIN 81MG CHEWABLE TABLET 324 MG PO (23:19)
[2025-03-09 23:23] LABS: D-Dimer 0.53 ug/mL (0.0-0.5)
--- OUTSIDE RECORDS SUMMARY | 2025-03-09 23:24 | XMS_ITS | Clinical Summary ---
Author Organization [facility] Address [address], [address] [place] [address] Care Team Providers Care Inseamer Name Role Phone No, Pcp Primary Care Provider Unavailabl e Medications norethindrone-et hinyl estradiol-iron (MICROGESTIN FE1.5) 1.5-30 MG-MCG tablet Take 1 tablet by mouth daily 10/04/2018 Active Active Problems Problem Noted Date Diagnosed Date Obesity, morbid 12/17/2018 Mixed hyperlipidemia 06/12/2018 Weight gain 05/25/2018 Stress at work 05/25/2018 Dysthymia 05/25/2018 Herpes zoster without complication 05/25/2018 Amenorrhea, secondary 05/25/2018 Class 2 obesity due to exces s calories with body mass index (BMI) of 38.0 to 38.9 in adult 05/25/2018 Family History Medical History Relation Name Comments Diabetes Father Heart Disease Father Hypertension Father Kidney Disease Father ARF Thyroid Disease Mother Relation Name Status Comments Father Mother Alive Social History Tobacco Use Types Packs/Day Years Used Date Smoking Tobacco: Never Smokeless Tobacco: Never Alcohol Use Standard Drinks/Week Comments No 0 (1 standard drink = 0.6 oz pur e alcohol) Comments Unknown Sex and Gender Information Value Date Recorded Sex Assigned at Not on file Legal Sex Female 6:40 PM EST Gender Identity Not on file Sexual Orientation Not on file Last Filed Vital Signs Vital Sign Reading Time Taken Comments Blood Pressure - - Pulse - - Temperature - - Respiratory Rate - - Oxygen Saturation - - Inhaled Oxygen Concentration - - Weight 111.1 kg (245 lb) 12/09/2021 12:30 PM EDT Height 167.6 cm (5' 6 ) 12/09/2021 12:30 PM EDT Body Mass Index 39.54 12/09/2021 12:30 PM EDT Plan of Treatment Not on file Care Teams Inseamer Relationship Specialty Start Date End Date No, Pcp PCP - General 06/07/23
--- OUTSIDE RECORDS SUMMARY | 2025-03-09 23:24 | XMS_ITS | Clinical Summary ---
Author Organization [facility] Address [address] [place] [address] Care Team Providers Care Head Sampler Name Role Phone Donnell Marino MD Primary Care Provider [phone] Allergies No known active allergies Medications Drospirenone-Marie trol 3-14.2 MG tablet Take 1 tablet by mouth Daily. 84 tablet 3 05/09/2024 Active Drospirenone-Marie trol (Nextstellis) 3-14.2 MG tablet Take 1 tablet by mouth Daily. 28 tablet 05/09/2024 Active metoprolol succinate XL (Toprol XL) 50 MG 24 hr tabletIndications :Heart palpitations Take 1 tablet by mouth Daily. 30 tablet 5 12/18/2024 Active Active Problems Problem Noted Date Diagnosed Date Heart palpitations 12/18/2024 PCOS (polycystic ovarian syndrome) 01/05/2023 Ganglion cyst of wrist, right 08/04/2022 Patellar instability of right knee 08/04/2022 Encounters Date Type Department Care Team Description 12/18/2024 4:00 PM EDT Office Visit [facility] [address] [place] [address] Donnell Marino MD Heart palpitations (Primary Dx); Stress 12/18/2024 Travel from Last 3 Months Family History Medical History Relation Name Comments Diabetes Father Al Heart disease Father Al Hyperlipidemia Father Al Hypertension Father Al Kidney disease Father Al Vision loss Father Al Osteoporosis Maternal Aunt Tatiana Other Maternal Aunt Tatiana Osteoporosis COPD Maternal Grandmother Candie Hyperlipidemia Mother Lorelei Hypertension Mother Lorelei Stroke Mother Lorelei Thyroid disease Mother Lorelei Relation Name Status Comments Father Al Maternal Aunt Tatiana Maternal Grandmother Candie Mother Lorelei Alive Social History Tobacco Use Types Packs/Day Years Used Date Smoking Tobacco: Never Smokeless Tobacco: Never Tobacco Cessation:Counseling Given: Not Answered Alcohol Use Standard Drinks/Week Comments Never 0 (1 standard drink = 0.6 oz pur e alcohol) PHQ-2 Answer Date Recorded Retired PHQ-9: Brief Depression Severity Measure Score 0 08/04/2022 PHQ-2 Answer Date Recorded Patient Health Questionnaire-2 Score 1 12/18/2024 Comments No Sex and Gender Information Value Date Recorded Sex Assigned at Female 11/06/2024 3:31 PM EDT Legal Sex Female 8:56 AM EDT Gender Identity Not on file Sexual Orientation Not on file Last Filed Vital Signs Vital Sign Reading Time Taken Comments Blood Pressure 120/72 12/18/2024 4:04 PM EDT Pulse 90 12/18/2024 4:04 PM EDT Temperature 36.3 C (97.4 F) 12/18/2024 4:04 PM EDT Respiratory Rate 18 12/18/2024 4:04 PM EDT Oxygen Saturation 97% 12/18/2024 4:04 PM EDT Inhaled Oxygen Concentration - - Weight 111 kg (245 lb) 12/18/2024 4:04 PM EDT Height 167.6 cm (5' 6 ) 12/18/2024 4:04 PM EDT Body Mass Index 39.54 12/18/2024 4:04 PM EDT Plan of Treatment Upcoming Encounters Date Type Department Care Team (Late st Contact Info) Description 03/21/2025 3:15 PM EDT Office Visit [facility] [address] [place] [address] Donnell Marino MD [address] [place] [address] Health Maintenance Due Date Last Done Comments TDAP/TD VACCINES (1 - Tdap) 2005 ANNUAL PHYSICAL 08/04/2022 Annual Gynecologic Pelvic an d Breast Exam 01/07/2024 01/05/2023 COVID-19 Vaccine (2023-2 5 season) 2024 INFLUENZA VACCINE 05/14/2025 PAP SMEAR 01/05/2026 01/05/2023 HEPATITIS C SCREENING Completed 08/10/2022 Pneumococcal Vaccine 0-49 Aged Out No longer eligible based on patient's age to complete this topic Procedures Procedure Name Priority Date/Time Associated Diagnosis Comments LIQUID-BASED PAP SMEAR WITH HPV GENOTYPING REGARDLESS OF INTERPRETATION, [facility] ([facility]) Routine 01/05/2023 10:53 AM EDT Pap test, as part of routine gynecological examination HEPATITIS C ANTIBODY Routine 08/10/2022 9:30 AM EST Need for hepatitis C screening test from Last 3 Months or Most Recently Relevant to Health Maintenance Results * LIQUID-BASED PAP SMEAR WITH HPV GENOTYPING REGARDLESS OF INTERPRETATION (AKOSUA,COR,MAD) (01/05/2023 10:53 AM EDT) Reference Lab Report [facility] [address] [place] [address] or [phone] Navi Bates M.D., Foil Spinner PATIENT NAME [facility] NO[facility] IV[facility] YOUNGBLOOD [id number] AGE SEX SSN CLIENT REF # [id number] JIHAN ROGERS 37 1985 F [id number] [address] [facility] [address] REQUESTING Dilshad [place] [address] JIHAN ROGERS DATE COLLECTED DATE RECEIVED DATE REPORTED 01/05/2023 01/05/2023 01/10/2023 ThinPrep Pap with Cytyc Imaging DIAGNOSIS: Epithelial cell abnormality. (ASC) Atypical squamous cells of undetermined significance. Professional interpretation rendered by Rohith Wilson M.D.,F.C.A.P. at [facility], [employer], [address] [place] [address]. SPECIMEN ADEQUACY: SATISFACTORY FOR EVALUATION Transformation zone is present. SOURCE OF SPECIMEN: CERVICAL/ENDOCERV ICAL SLIDES: 1 CLINICAL HISTORY: Pap test, as part of routine gynecological examination Amenorrhea HPV HR-HPV POOL: Negative The Aptima HPV assay is an in vitro nucleic acid amplification test for the qualitative detection of E6/E7 viral messenger RNA from 14 high risk types of HPV in cervical specimens. The high risk HPV types detected include: 16, 18, 31, 33, 35, 39, 45, 51, 52, 56, 58, 59, 66, 68 CAMPAIGN ASSISTANT: MIL EL (ASCP) REVIEWED, DIAGNOSED AND ELECTRONICALLY SIGNED BY: Rohith Wilson M.D.,F.C.A.P. CPT CODES: [id number], [id number], [id number] 01/10/2023 2:50 PM EDT [facility] ThinPrep Vial Cervix uteri structure / Unknown Collection / Unknown 01/05/2023 10:53 AM EDT 01/05/2023 10:53 AM EDT Jihan Rogers MD PATHOLOGY/CYTOLOGY ORDERABLES nal Result [facility]
[address] [place] [address], * Hepatitis C Antibody (08/10/2022 9:30 AM EST) Hep C Virus Ab 0.1 0.0 - 0.9 s/co ratio [facility] Comment: Negative: < 0.8 Indeterminate: 0.8 - 0.9 Positive: > 0.9 HCV antibody alone does not differentiate between previous resolved infection and active infection. The CDC and current clinical guidelines recommend that a positive HCV antibody result be followed up with an HCV RNA test to support the diagnosis of acute HCV infection. [facility] offers Hepatitis C Virus (HCV) RNA, Diagnosis, RIYA (195282) and Hepatitis C Virus (HCV) Antibody with reflex to Quantitative Real-time PCR ([id number]). Blood 08/10/2022 9:30 AM EST 08/10/2022 Narrative [facility] ([facility]) - 08/11/2022 6:08 AM EST Performed at: [address] [facility] [address] [place], [place] [id number] Press Pipe Inspector: George Bach PhD, Phone: [phone] Patient Fasting: Y us Jessica Wilma Fenton DO LAB BLOOD ORDERABLES Final Result [facility] ([facility]) [address] [place] [address], [place] [phone] [facility] [address] [place] [address], from Last 3 Months or Most Recently Relevant to Health Maintenance Insurance [facility] [place] [address] Care Teams Head Sampler Relationship Specialty Start Date End Date Donnell Marino MD [address] [facility] [place] [address] PCP - General Family Medicine 03/21/24
--- OUTSIDE RECORDS SUMMARY | 2025-03-09 23:24 | XMS_ITS | Encounter Summary ---
[facility] Organization [facility] Address [address] [place] [address] Care Team Providers Care Tap And Die Maker Technician Name Role Phone Donnell Marino MD Primary Care Provider [phone] Encounter Details Date Type Department Care Team (Late Contact Info) Description 11/07/2024 Results Follow-Up [facility] [address] [facility] [place] [address] Donnell Marino MD [address] [facility] [place] [address] Social History Tobacco Use Types Packs/Day Years Used Date Smoking Tobacco: Never Smokeless Tobacco: Never Alcohol Use Standard Drinks/Week Comments Never 0 (1 standard drink = 0.6 oz pur e alcohol) PHQ-2 Answer Date Recorded Retired PHQ-9: Brief Depression Severity Measure Score 0 08/04/2022 PHQ-2 Answer Date Recorded Retired PHQ-9: Brief Depression Severity Measure Score 0 02/06/2024 Comments No Sex and Gender Information Value Date Recorded Sex Assigned at Female 11/06/2024 3:31 PM EDT Legal Sex Female 8:56 AM EDT Gender Identity Not on file Sexual Orientation Not on file documented as of this encounter Plan of Treatment Upcoming Encounters Date Type Department Care Team (Late Contact Info) Description 03/21/2025 3:15 PM EDT Office Visit [facility] [address] [facility] [place] [address] Donnell Marino MD [address] [place] [address] documented as of this encounter Visit Diagnoses Diagnosis Heart palpitations- Primary Palpitations documented in this encounter Care Teams Tap And Die Maker Technician Relationship Specialty Start Date End Date Donnell Marino MD [address] [place] [address] PCP - General Family Medicine 03/21/24 documented as of this encounter
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
[2025-03-09 23:30] VITALS: BP 135/82; PULSE 57; RESP 11; O2SAT 96
[2025-03-09 23:33] LABS: Troponin I < 0.01 ng/ml (0.00-0.034)
[2025-03-10] VITALS (8 sets, daily range): BP systolic 101–130; BP diastolic 52–78; PULSE 52–58; RESP 12–14; TEMP 36.4; O2SAT 95–99
[2025-03-10] MEDS: PROCHLORPERAZINE 10MG/2ML VIAL 10 MG IV (00:09)
[2025-03-10 02:48] LABS: Troponin I < 0.01 ng/ml (0.00-0.034)
== END 2025-03-10 02:58 | disposition home or self-care (01) ==
PROVIDERS: Emergency Provider Emergency Medicine
DX: R07.89 Other chest pain (principal); M79.602 Pain in left arm
CPT/HCPCS: 71045; 80053; 84484; 85025; 85378; 93005; 96374; 99285; J0780